=== PATIENT | male | born 1960 | race Caucasian/White ===

== ENCOUNTER → 2018-06-15 | Outpatient (CLI) | payer MEDICARE, OTHER ==
[~2018-06-15] MED LIST: ACYC800 PO; AMLO5 PO; Bactroban22 GM TOP; CIPR500 PO; CITA20 PO; DIAZ5 PO; Desyrel150 MG; FLUC200 PO; GLYB5 PO; IBUPROFEN PO; LISI20 PO; LORA.5 PO; METF500 PO; MULVITMIND PO; NICO14TP TOP; OMEP10ER PO; OXYC5 PO; PIOG30 PO; PROC5 PO; SENN187 PO; TAMS.4ER PO; TRAM50 PO; [UNRECOGNIZED DRUG - CODE] IM/IV/SC
[2018-06-15 12:42] LABS: U Amphetamine Screen Not Detected; U Barbituate Screen Not Detected; U Benzodiazapine Screen Not Detected; U Buprenorphine Screen Not Detected; U Cannabinoids Screen DETECTED; U Cocaine Screen Not Detected; U Methadone Screen Not Detected; U Methamphetamine Screen Not Detected; U Opiates Screen Not Detected; U Oxycodone Screen DETECTED; U Phencyclidine Screen Not Detected; U Propoxyphene Screen Not Detected
== END | disposition home or self-care (01) ==
LOC: LAB SHORT 12:17 → LAB 12:17
PROVIDERS: Internal Medicine Hematology & Oncology
DX: E78.2 Mixed hyperlipidemia (principal); E11.9 Type 2 diabetes mellitus without complications; I10 Essential (primary) hypertension; Z79.899 Other long term (current) drug therapy
CPT/HCPCS: G0480

== ENCOUNTER → 2018-09-06 | Outpatient (CLI) | payer MEDICARE, OTHER ==
[2018-09-06 14:34] LABS: U Amphetamine Screen Not Detected; U Barbituate Screen Not Detected; U Benzodiazapine Screen Not Detected; U Buprenorphine Screen Not Detected; U Cannabinoids Screen DETECTED; U Cocaine Screen Not Detected; U Methadone Screen Not Detected; U Methamphetamine Screen Not Detected; U Opiates Screen Not Detected; U Oxycodone Screen DETECTED; U Phencyclidine Screen Not Detected; U Propoxyphene Screen Not Detected
== END | disposition home or self-care (01) ==
LOC: LAB SHORT 13:14 → LAB 13:14
PROVIDERS: Internal Medicine Hematology & Oncology
DX: F11.20 Opioid dependence, uncomplicated (principal); Z79.899 Other long term (current) drug therapy
CPT/HCPCS: G0480

== ENCOUNTER → 2019-10-26 | Outpatient (CLI) | payer MEDICARE, OTHER | END | disposition home or self-care (01) | LOC: LAB SHORT 08:16 → LAB 08:16 | DX: C44.612 Basal cell carcinoma of skin of right upper limb, including shoulder (principal) | CPT/HCPCS: 88305 ==

== ENCOUNTER → 2019-11-08 | Outpatient (CLI) | payer MEDICARE, OTHER ==
[2019-11-08 11:49] LABS: U Cannabinoids Screen DETECTED
[2019-11-08 11:50] LABS: U Amphetamine Screen Not Detected; U Barbituate Screen Not Detected; U Benzodiazapine Screen Not Detected; U Buprenorphine Screen Not Detected; U Cocaine Screen Not Detected; U Methadone Screen Not Detected; U Methamphetamine Screen Not Detected; U Opiates Screen Not Detected; U Oxycodone Screen DETECTED; U Phencyclidine Screen Not Detected; U Propoxyphene Screen Not Detected
== END | disposition home or self-care (01) ==
LOC: LAB SHORT 09:45 → LAB 09:45
PROVIDERS: Internal Medicine Hematology & Oncology
DX: Z51.81 Encounter for therapeutic drug level monitoring (principal); Z79.899 Other long term (current) drug therapy

== ENCOUNTER → 2020-04-30 | Outpatient (CLI) | payer MEDICARE, OTHER ==
[2020-04-30 17:33] LABS: Albumin/Globulin Ratio 1.2 (0.8-1.8); Bilirubin, Total 0.6 mg/dL (0.1-1.0); Bun/Creatinine Ratio 19.5 (12.0-20.0); Calcium, Blood 8.9 mg/dL (8.5-10.1); Creatinine, Blood 1.49 mg/dL (0.60-1.20); Globulin, Blood 3.4 g/dL (2.2-4.0); Total Protein, Blood 7.4 g/dL (6.4-8.2)
== END | disposition home or self-care (01) ==
LOC: LAB SHORT 13:46 → LAB 13:46
PROVIDERS: Internal Medicine Hematology & Oncology
DX: C83.70 Burkitt lymphoma, unspecified site (principal); E56.9 Vitamin deficiency, unspecified; E53.8 Deficiency of other specified B group vitamins
CPT/HCPCS: 80053; 82607; 82746; 84100

== ENCOUNTER → 2020-08-02 | Outpatient (CLI) | payer MEDICARE, OTHER ==
[2020-08-02 15:18] LABS: U Amphetamine Screen Not Detected; U Barbituate Screen Not Detected; U Benzodiazapine Screen Not Detected; U Buprenorphine Screen Not Detected; U Cannabinoids Screen DETECTED; U Cocaine Screen Not Detected; U Methadone Screen Not Detected; U Methamphetamine Screen Not Detected; U Opiates Screen Not Detected; U Oxycodone Screen DETECTED; U Phencyclidine Screen Not Detected; U Propoxyphene Screen Not Detected
== END | disposition home or self-care (01) ==
LOC: LAB SHORT 13:50 → LAB 13:50
PROVIDERS: Internal Medicine Hematology & Oncology
DX: Z51.81 Encounter for therapeutic drug level monitoring (principal); Z79.899 Other long term (current) drug therapy

== ENCOUNTER → 2021-12-31 | Outpatient (CLI) | payer MEDICARE ==
[2021-12-31 14:24] LABS: U Amphetamine Screen Not Detected; U Barbituate Screen Not Detected; U Benzodiazapine Screen DETECTED; U Buprenorphine Screen Not Detected; U Cannabinoids Screen DETECTED; U Cocaine Screen Not Detected; U Methadone Screen Not Detected; U Methamphetamine Screen Not Detected; U Opiates Screen Not Detected; U Oxycodone Screen DETECTED; U Phencyclidine Screen Not Detected; U Propoxyphene Screen Not Detected
== END | disposition home or self-care (01) ==
LOC: LAB 08:04 → LAB SHORT 08:04
PROVIDERS: Internal Medicine Hematology & Oncology
DX: Z51.81 Encounter for therapeutic drug level monitoring (principal); Z79.899 Other long term (current) drug therapy

== ENCOUNTER → 2022-01-30 | Outpatient (CLI) | payer MEDICARE, OTHER ==
[2022-01-30 12:14] LABS: U Amphetamine Screen Not Detected; U Barbituate Screen Not Detected; U Benzodiazapine Screen DETECTED; U Buprenorphine Screen Not Detected; U Cannabinoids Screen DETECTED; U Cocaine Screen Not Detected; U Methadone Screen Not Detected; U Methamphetamine Screen Not Detected; U Opiates Screen Not Detected; U Oxycodone Screen DETECTED; U Phencyclidine Screen Not Detected; U Propoxyphene Screen Not Detected
== END | disposition home or self-care (01) ==
LOC: LAB SHORT 10:27
PROVIDERS: Internal Medicine Hematology & Oncology
DX: Z51.81 Encounter for therapeutic drug level monitoring (principal); Z79.899 Other long term (current) drug therapy

== ENCOUNTER → 2022-03-02 | Outpatient (CLI) | payer MEDICARE ==
[2022-03-02 12:40] LABS: U Amphetamine Screen Not Detected; U Barbituate Screen Not Detected; U Benzodiazapine Screen Not Detected; U Buprenorphine Screen Not Detected; U Cannabinoids Screen DETECTED; U Cocaine Screen Not Detected; U Methadone Screen Not Detected; U Methamphetamine Screen Not Detected; U Opiates Screen Not Detected; U Oxycodone Screen DETECTED; U Phencyclidine Screen Not Detected; U Propoxyphene Screen Not Detected
[2022-03-09 08:08] LABS: CARBOXY-THC >746 (.)
== END | disposition home or self-care (01) ==
LOC: LAB 10:30 → LAB SHORT 10:30
PROVIDERS: Internal Medicine Hematology & Oncology
DX: Z51.81 Encounter for therapeutic drug level monitoring (principal); Z79.899 Other long term (current) drug therapy
CPT/HCPCS: G0480

== ENCOUNTER → 2022-03-20 | Outpatient (CLI) | payer MEDICARE, OTHER ==
[2022-03-20 11:39] LABS: BASOPHILS ABSOLUTE AUTO 0.04 K/mm3 (0.00-0.23); BASOPHILS PERCENT AUTO 0 % (0-2); EOSINOPHILS ABSOLUTE AUTO 0.02 K/mm3 (0.00-0.68); EOSINOPHILS PERCENT AUTO 0 % (0-6); Hematocrit 52.8 % (37.0-53.0); Hemoglobin 18.4 g/dL (13.5-17.5); IMMATURE GRAN ABSOLUTE AUTO 0.04 K/mm3 (0.00-0.10); IMMATURE GRAN PERCENT AUTO 0 % (0-1); LYMPHOCYTES ABSOLUTE AUTO 1.56 K/mm3 (0.84-5.20); LYMPHOCYTES PERCENT AUTO 12 % (21-46); MONOCYTES PERCENT AUTO 7 % (4-13); Mean Corpuscular HGB 29.4 pg (26.0-34.0); Mean Corpuscular HGB Conc 34.8 g/dL (31.5-36.5); Mean Corpuscular Volume 84 fL (80-100); Mean Platelet Volume 9.2 fL (9.1-12.4); NEUTROPHILS ABSOLUTE AUTO 10.76 K/mm3 (1.96-9.15); NEUTROPHILS PERCENT AUTO 81 % (41-73); Platelet Count 128 K/mm3 (150-400); RDW Coefficient Variation 12.9 % (11.7-14.2); RDW Standard Deviation 39.7 fL (35.1-46.3); Red Blood Cell Count 6.26 M/mm3 (4.30-5.90); White Blood Cell Count 13.32 K/mm3 (4.00-11.30)
[2022-03-20 11:43] LABS: Bun/Creatinine Ratio 18.4 (12.0-20.0); Calcium, Blood 9.7 mg/dL (8.5-10.1); Creatinine, Blood 1.85 mg/dL (0.60-1.20); Potassium, Blood 4.4 mmol/L (3.5-5.5)
== END ==
LOC: LAB 11:33 → LAB SHORT 11:33
PROVIDERS: Physician Assistant
DX: R53.83 Other fatigue (principal)
CPT/HCPCS: 80048; 85025

== ENCOUNTER → 2022-03-25 | Outpatient (CLI) | payer MEDICARE ==
[2022-03-25 12:34] LABS: Creatinine, Urine Random 43.1 mg/dL (27.00-270.00); Protein, Urine Random 14.9 mg/dL (0.0-11.9); Protein/Creat Ratio, Ur Random 0.3
== END | disposition home or self-care (01) ==
LOC: PLD 09:32 → LAB SHORT 09:32
PROVIDERS: Internal Medicine Nephrology
DX: N18.31 Chronic kidney disease, stage 3a (principal)
CPT/HCPCS: 82570; 84156

== ENCOUNTER → 2022-04-01 | Outpatient (CLI) | payer MEDICARE ==
[2022-04-01 12:32] LABS: U Amphetamine Screen Not Detected; U Barbituate Screen Not Detected; U Benzodiazapine Screen Not Detected; U Buprenorphine Screen Not Detected; U Cannabinoids Screen DETECTED; U Cocaine Screen Not Detected; U Methadone Screen Not Detected; U Methamphetamine Screen Not Detected; U Opiates Screen Not Detected; U Oxycodone Screen DETECTED; U Phencyclidine Screen Not Detected; U Propoxyphene Screen Not Detected
[2022-04-07 17:10] LABS: CARBOXY-THC >661 (.)
== END | disposition home or self-care (01) ==
LOC: LAB 09:22 → LAB SHORT 09:22
PROVIDERS: Internal Medicine Hematology & Oncology
DX: Z51.81 Encounter for therapeutic drug level monitoring (principal); Z79.899 Other long term (current) drug therapy
CPT/HCPCS: G0480

== ENCOUNTER → 2022-06-03 | Outpatient (CLI) | payer MEDICARE ==
[2022-06-03 14:32] LABS: U Amphetamine Screen Not Detected; U Barbituate Screen Not Detected; U Benzodiazapine Screen Not Detected; U Buprenorphine Screen Not Detected; U Cannabinoids Screen DETECTED; U Cocaine Screen Not Detected; U Methadone Screen Not Detected; U Methamphetamine Screen Not Detected; U Opiates Screen Not Detected; U Oxycodone Screen DETECTED; U Phencyclidine Screen Not Detected; U Propoxyphene Screen Not Detected
== END | disposition home or self-care (01) ==
LOC: LAB SHORT 09:46
PROVIDERS: Internal Medicine Hematology & Oncology
DX: Z51.81 Encounter for therapeutic drug level monitoring (principal); Z79.899 Other long term (current) drug therapy

== ENCOUNTER → 2022-07-01 | Outpatient (CLI) | payer MEDICARE ==
[2022-07-01 14:17] LABS: U Amphetamine Screen Not Detected; U Barbituate Screen Not Detected; U Benzodiazapine Screen DETECTED; U Buprenorphine Screen Not Detected; U Cannabinoids Screen DETECTED; U Cocaine Screen Not Detected; U Methadone Screen Not Detected; U Methamphetamine Screen Not Detected; U Opiates Screen Not Detected; U Oxycodone Screen DETECTED; U Phencyclidine Screen Not Detected; U Propoxyphene Screen Not Detected
== END | disposition home or self-care (01) ==
LOC: LAB SHORT 10:01 → LAB 10:01
PROVIDERS: Internal Medicine Hematology & Oncology
DX: Z51.81 Encounter for therapeutic drug level monitoring (principal); Z79.899 Other long term (current) drug therapy

== ENCOUNTER → 2022-07-31 | Outpatient (CLI) | payer MEDICARE ==
[2022-07-31 14:34] LABS: U Amphetamine Screen Not Detected; U Barbituate Screen Not Detected; U Benzodiazapine Screen DETECTED; U Buprenorphine Screen Not Detected; U Cannabinoids Screen DETECTED; U Cocaine Screen Not Detected; U Methadone Screen Not Detected; U Methamphetamine Screen Not Detected; U Opiates Screen Not Detected; U Oxycodone Screen DETECTED; U Phencyclidine Screen Not Detected; U Propoxyphene Screen Not Detected
== END | disposition home or self-care (01) ==
LOC: LAB SHORT 12:40
PROVIDERS: Internal Medicine Hematology & Oncology
DX: Z51.81 Encounter for therapeutic drug level monitoring (principal); Z79.899 Other long term (current) drug therapy

== ENCOUNTER → 2022-08-31 | Outpatient (CLI) | payer MEDICARE ==
[2022-08-31 19:04] LABS: U Amphetamine Screen Not Detected; U Barbituate Screen Not Detected; U Benzodiazapine Screen DETECTED; U Buprenorphine Screen Not Detected; U Cannabinoids Screen DETECTED; U Cocaine Screen Not Detected; U Methadone Screen Not Detected; U Methamphetamine Screen Not Detected; U Opiates Screen Not Detected; U Oxycodone Screen DETECTED; U Phencyclidine Screen Not Detected; U Propoxyphene Screen Not Detected
== END | disposition home or self-care (01) ==
LOC: LAB 10:30 → LAB SHORT 10:30
PROVIDERS: Internal Medicine Hematology & Oncology
DX: Z79.899 Other long term (current) drug therapy (principal)

== ENCOUNTER → 2022-10-01 | Outpatient (CLI) | payer MEDICARE ==
[2022-10-01 11:51] LABS: U Benzodiazapine Screen DETECTED; U Cannabinoids Screen DETECTED; U Oxycodone Screen DETECTED
[2022-10-01 11:52] LABS: U Amphetamine Screen Not Detected; U Barbituate Screen Not Detected; U Buprenorphine Screen Not Detected; U Cocaine Screen Not Detected; U Methadone Screen Not Detected; U Methamphetamine Screen Not Detected; U Opiates Screen Not Detected; U Phencyclidine Screen Not Detected; U Propoxyphene Screen Not Detected
== END | disposition home or self-care (01) ==
LOC: LAB 10:11 → LAB SHORT 10:11
PROVIDERS: Internal Medicine Hematology & Oncology
DX: Z51.81 Encounter for therapeutic drug level monitoring (principal); Z79.899 Other long term (current) drug therapy

== ENCOUNTER → 2022-10-30 | Outpatient (CLI) | payer MEDICARE ==
[2022-10-30 15:57] LABS: U Amphetamine Screen Not Detected; U Barbituate Screen Not Detected; U Benzodiazapine Screen Not Detected; U Buprenorphine Screen Not Detected; U Cannabinoids Screen DETECTED; U Cocaine Screen Not Detected; U Methadone Screen Not Detected; U Methamphetamine Screen Not Detected; U Opiates Screen Not Detected; U Oxycodone Screen DETECTED; U Phencyclidine Screen Not Detected; U Propoxyphene Screen Not Detected
== END | disposition home or self-care (01) ==
LOC: LAB 13:24 → LAB SHORT 13:24
PROVIDERS: Internal Medicine Hematology & Oncology
DX: Z51.81 Encounter for therapeutic drug level monitoring (principal); Z79.899 Other long term (current) drug therapy

== ENCOUNTER → 2022-11-30 | Outpatient (CLI) | payer MEDICARE ==
[2022-11-30 16:28] LABS: U Amphetamine Screen Not Detected; U Barbituate Screen Not Detected; U Benzodiazapine Screen Not Detected; U Buprenorphine Screen Not Detected; U Cannabinoids Screen DETECTED; U Cocaine Screen Not Detected; U Methadone Screen Not Detected; U Methamphetamine Screen Not Detected; U Opiates Screen Not Detected; U Oxycodone Screen DETECTED; U Phencyclidine Screen Not Detected; U Propoxyphene Screen Not Detected
[2022-12-06 13:08] LABS: CARBOXY-THC 952 (.)
== END ==
LOC: LAB SHORT 13:00 → LAB 13:00
PROVIDERS: Internal Medicine Hematology & Oncology
DX: Z51.81 Encounter for therapeutic drug level monitoring (principal); Z79.899 Other long term (current) drug therapy
CPT/HCPCS: G0480

== ENCOUNTER → 2022-12-28 | Outpatient (CLI) | payer MEDICARE ==
[2022-12-28 15:51] LABS: U Amphetamine Screen Not Detected; U Barbituate Screen Not Detected; U Benzodiazapine Screen DETECTED; U Buprenorphine Screen Not Detected; U Cannabinoids Screen DETECTED; U Cocaine Screen Not Detected; U Methadone Screen Not Detected; U Methamphetamine Screen Not Detected; U Opiates Screen Not Detected; U Oxycodone Screen DETECTED; U Phencyclidine Screen Not Detected; U Propoxyphene Screen Not Detected
[2022-12-31 17:11] LABS: CARBOXY-THC >833 (.)
== END | disposition home or self-care (01) ==
LOC: LAB 13:23 → LAB SHORT 13:23
PROVIDERS: Internal Medicine Hematology & Oncology
DX: Z51.81 Encounter for therapeutic drug level monitoring (principal); Z79.899 Other long term (current) drug therapy
CPT/HCPCS: G0480

== ENCOUNTER → 2023-03-29 | Outpatient (CLI) | payer MEDICARE ==
[2023-03-29 16:00] LABS: U Cannabinoids Screen DETECTED; U Oxycodone Screen DETECTED
[2023-03-29 16:01] LABS: U Amphetamine Screen Not Detected; U Barbituate Screen Not Detected; U Benzodiazapine Screen Not Detected; U Buprenorphine Screen Not Detected; U Cocaine Screen Not Detected; U Methadone Screen Not Detected; U Methamphetamine Screen Not Detected; U Opiates Screen Not Detected; U Phencyclidine Screen Not Detected; U Propoxyphene Screen Not Detected
== END ==
LOC: LAB SHORT 13:39 → LAB 13:39
PROVIDERS: Internal Medicine Hematology & Oncology
DX: C83.70 Burkitt lymphoma, unspecified site (principal); G89.29 Other chronic pain; Z79.899 Other long term (current) drug therapy

== ENCOUNTER → 2023-04-27 | Outpatient (CLI) | payer MEDICARE ==
[2023-04-27 19:51] LABS: U Amphetamine Screen Not Detected; U Barbituate Screen Not Detected; U Benzodiazapine Screen Not Detected; U Buprenorphine Screen Not Detected; U Cannabinoids Screen DETECTED; U Cocaine Screen Not Detected; U Methadone Screen Not Detected; U Methamphetamine Screen Not Detected; U Opiates Screen Not Detected; U Oxycodone Screen DETECTED; U Phencyclidine Screen Not Detected
== END | disposition home or self-care (01) ==
LOC: LAB 18:16 → LAB SHORT 18:16
PROVIDERS: Internal Medicine Hematology & Oncology
DX: Z51.81 Encounter for therapeutic drug level monitoring (principal); Z79.899 Other long term (current) drug therapy

== ENCOUNTER → 2023-05-25 | Outpatient (CLI) | payer MEDICARE ==
[2023-05-25 14:37] LABS: U Amphetamine Screen Not Detected; U Barbituate Screen Not Detected; U Benzodiazapine Screen Not Detected; U Buprenorphine Screen Not Detected; U Cannabinoids Screen DETECTED; U Cocaine Screen Not Detected; U Methadone Screen Not Detected; U Methamphetamine Screen Not Detected; U Opiates Screen Not Detected; U Oxycodone Screen DETECTED; U Phencyclidine Screen Not Detected
== END | disposition home or self-care (01) ==
LOC: LAB 12:46 → LAB SHORT 12:46
PROVIDERS: Internal Medicine Hematology & Oncology
DX: Z51.81 Encounter for therapeutic drug level monitoring (principal); Z79.899 Other long term (current) drug therapy

== ENCOUNTER → 2023-07-01 | Outpatient (CLI) | payer OTHER ==
[2023-07-01 14:20] LABS: U Amphetamine Screen Not Detected; U Barbituate Screen Not Detected; U Benzodiazapine Screen Not Detected; U Buprenorphine Screen Not Detected; U Cannabinoids Screen DETECTED; U Cocaine Screen Not Detected; U Methadone Screen Not Detected; U Methamphetamine Screen Not Detected; U Opiates Screen Not Detected; U Oxycodone Screen DETECTED; U Phencyclidine Screen Not Detected
== END ==
LOC: LAB 10:01 → LAB SHORT 10:01
PROVIDERS: Internal Medicine Hematology & Oncology
DX: Z51.81 Encounter for therapeutic drug level monitoring (principal); Z79.899 Other long term (current) drug therapy

== ENCOUNTER → 2023-07-29 | Outpatient (CLI) | payer OTHER ==
[2023-07-29 14:46] LABS: U Amphetamine Screen Not Detected; U Barbituate Screen Not Detected; U Benzodiazapine Screen Not Detected; U Cannabinoids Screen DETECTED; U Cocaine Screen Not Detected; U Methadone Screen Not Detected; U Methamphetamine Screen Not Detected; U Oxycodone Screen DETECTED
[2023-07-29 14:47] LABS: U Buprenorphine Screen Not Detected; U Opiates Screen Not Detected; U Phencyclidine Screen Not Detected
== END ==
LOC: LAB 13:59 → LAB SHORT 13:59
PROVIDERS: Internal Medicine Hematology & Oncology
DX: C83.70 Burkitt lymphoma, unspecified site (principal); G89.29 Other chronic pain; Z79.899 Other long term (current) drug therapy

== ENCOUNTER → 2023-09-27 | Outpatient (CLI) | payer OTHER ==
[2023-09-27 14:56] LABS: U Amphetamine Screen Not Detected; U Barbituate Screen Not Detected; U Benzodiazapine Screen Not Detected; U Buprenorphine Screen Not Detected; U Cannabinoids Screen DETECTED; U Cocaine Screen Not Detected; U Methadone Screen Not Detected; U Methamphetamine Screen Not Detected; U Opiates Screen Not Detected; U Oxycodone Screen DETECTED; U Phencyclidine Screen Not Detected
== END | disposition home or self-care (01) ==
LOC: LAB 09:35 → LAB SHORT 09:35
PROVIDERS: Internal Medicine Hematology & Oncology
DX: G89.29 Other chronic pain (principal); Z79.899 Other long term (current) drug therapy

== ENCOUNTER → 2023-11-29 | Outpatient (CLI) | payer OTHER ==
[2023-11-29 13:32] LABS: U Amphetamine Screen Not Detected; U Barbituate Screen Not Detected; U Benzodiazapine Screen Not Detected; U Buprenorphine Screen Not Detected; U Cannabinoids Screen DETECTED; U Cocaine Screen Not Detected; U Methadone Screen Not Detected; U Methamphetamine Screen Not Detected; U Opiates Screen Not Detected; U Oxycodone Screen DETECTED; U Phencyclidine Screen Not Detected
== END | disposition home or self-care (01) ==
LOC: LAB 11:18 → LAB SHORT 11:18
PROVIDERS: Internal Medicine Hematology & Oncology
DX: C83.70 Burkitt lymphoma, unspecified site (principal); E11.43 Type 2 diabetes mellitus with diabetic autonomic (poly)neuropathy; R53.83 Other fatigue; Z79.899 Other long term (current) drug therapy

== ENCOUNTER → 2023-12-30 | Outpatient (CLI) | payer OTHER ==
[2023-12-30 14:30] LABS: U Cannabinoids Screen DETECTED; U Oxycodone Screen DETECTED
[2023-12-30 14:31] LABS: U Amphetamine Screen Not Detected; U Barbituate Screen Not Detected; U Benzodiazapine Screen Not Detected; U Buprenorphine Screen Not Detected; U Cocaine Screen Not Detected; U Methadone Screen Not Detected; U Methamphetamine Screen Not Detected; U Opiates Screen Not Detected; U Phencyclidine Screen Not Detected
== END | disposition home or self-care (01) ==
LOC: LAB SHORT 13:05 → LAB 13:05
PROVIDERS: Internal Medicine Hematology & Oncology
DX: C83.70 Burkitt lymphoma, unspecified site (principal); Z79.899 Other long term (current) drug therapy

== ENCOUNTER → 2024-01-28 | Outpatient (CLI) | payer OTHER ==
[2024-01-28 14:33] LABS: U Amphetamine Screen Not Detected; U Barbituate Screen Not Detected; U Benzodiazapine Screen Not Detected; U Cannabinoids Screen DETECTED; U Cocaine Screen Not Detected; U Methadone Screen Not Detected; U Methamphetamine Screen Not Detected; U Oxycodone Screen DETECTED
[2024-01-28 14:34] LABS: U Buprenorphine Screen Not Detected; U Opiates Screen Not Detected; U Phencyclidine Screen Not Detected
== END | disposition home or self-care (01) ==
LOC: LAB 13:01 → LAB SHORT 13:01
PROVIDERS: Internal Medicine Hematology & Oncology
DX: Z51.81 Encounter for therapeutic drug level monitoring (principal); Z79.899 Other long term (current) drug therapy

== ENCOUNTER 2024-03-15 07:52 | Day surgery (SDC) | payer OTHER ==
[2024-03-15] VITALS (20 sets, daily range): BP systolic 97–152; BP diastolic 62–96
[~2024-03-15] VITALS: Ht 177.8 cm; Wt 89.5 kg
[~2024-03-15 07:52] MED LIST changes: +INSULANI SC; +PANT40 PO; +Prozac40 MG PO
[2024-03-15] MEDS ORDERED: Lactated Ringer's 1,000 ML IV SCH (08:55)
--- NOTE | 2024-03-15 09:22 | NUR ---
Ambulatory in Day Surgery. History, Chart, Medications and Allergies reviewed before start of procedure. Lungs clear T/O to Auscultation. Patient confirms NPO status and agrees with scheduled surgery. Pre-Op teaching done. Pt verbalizes understanding. Patient States Post-Procedure ride home has been arranged.
[2024-03-15] MEDS ORDERED: propofoL 40 ML IV ONE (09:36)
--- NOTE | 2024-03-15 09:41 | NUR ---
03/15/24 0941 Nadia Acharya CONFIRMED AND REVIEWED H&P, MEDCICATIONS, ALLERGIES, MEDICAL HISTORY, RESPIRATORY HISTORY, VITAL SIGNS, 3-LEAD EKG, CONSENTS, AND PHYSICIAN ORDERS. PATIENT CONFIRMS NPO STATUS AND AGREES WITH SCHEDULED PROCEDURE. MONITOR INTACT WITH CONTINUOUS PULSE OXIMETRY, CAPNOGRAPHY, 3-LEAD EKG, INTERMITTENT BP. SUPPLEMENTAL O2 TO BE TITRATED THROUGHOUT PROCEDURE TO MAINTAIN O2 SATURATION ABOVE 90%. PATIENT DETERMINED TO BE ASA APPROPRIATE FOR PROPOFOL SEDATION PRIOR TO START OF PROCEDURE BY DR. THORNE MALLAMPATI CLASS 2 AIRWAY: COMPLETE VISUALIZATION OF THE UVULA.
[2024-03-15] MEDS ORDERED: Midazolam HCl 1MG / ML 2ML Vial ONE (09:44)
--- NOTE | 2024-03-15 10:39 | NUR ---
Discharge instructions reviewed with patient. Patient verbalizes understanding. Copy given to patient to take home. Patient States Post-Procedure ride home has been arranged. Discharged via wheelchair to private car for ride home.
== END 2024-03-15 10:40 | disposition home or self-care (01) ==
LOC: ORSCMMR 07:52 → ORD 09:00 → ORSCMMR 09:00
PROVIDERS: Internal Medicine Gastroenterology
PROC: 0DBL8ZX Excision of Transverse Colon, Via Natural or Artificial Opening Endoscopic, Diagnostic (ICD-10-PCS; principal; 2024-03-15 09:00)
PROC: 0DBK8ZX Excision of Ascending Colon, Via Natural or Artificial Opening Endoscopic, Diagnostic (ICD-10-PCS; principal; 2024-03-15 09:00)
PROC: 0DBM8ZX Excision of Descending Colon, Via Natural or Artificial Opening Endoscopic, Diagnostic (ICD-10-PCS; principal; 2024-03-15 09:00)
DX: Z12.11 Encounter for screening for malignant neoplasm of colon (principal); D12.2 Benign neoplasm of ascending colon; D12.4 Benign neoplasm of descending colon; K63.5 Polyp of colon; K64.8 Other hemorrhoids; Z86.0101 Personal history of adenomatous and serrated colon polyps; C83.7 Burkitt lymphoma; E11.9 Type 2 diabetes mellitus without complications; K21.9 Gastro-esophageal reflux disease without esophagitis; I10 Essential (primary) hypertension; F32.A Depression, unspecified; Z79.84 Long term (current) use of oral hypoglycemic drugs; Z79.899 Other long term (current) drug therapy; Z87.891 Personal history of nicotine dependence
CPT/HCPCS: 82947; 88305; J2250; J2704; J7120

== ENCOUNTER 2024-05-29 08:02 | Day surgery (SDC) | payer OTHER ==
[2024-05-29] VITALS (7 sets, daily range): BP systolic 116–143; BP diastolic 63–90
[~2024-05-29] VITALS: Ht 177.8 cm; Wt 91.2 kg
[~2024-05-29 08:02] MED LIST changes: +VITAMIN D31000 UNI1 PO
[2024-05-29] MEDS ORDERED: NS 1,000 ML IV ONE ×2 (09:40→09:42)
[2024-05-29] MEDS ORDERED: Heparin Sodium 1000 Units/ML 10ML MDV ONE ×2 (09:40→11:42)
[2024-05-29] MEDS ORDERED: Verapamil HCL 2.5 MG/ML 2ML Injection ONE (09:40)
[2024-05-29] MEDS ORDERED: NS 500 ML IV ONE (09:40)
[2024-05-29] MEDS ORDERED: Nitroglycerin 2 MG/20 ML BTL ONE (09:41)
[2024-05-29] MEDS ORDERED: Midazolam HCl 1MG / ML 2ML Vial ONE ×2 (09:42→11:52)
[2024-05-29] MEDS ORDERED: FentaNYL Citrate 50 MCG/ML 2 ML Injection ONE ×2 (09:42→11:52)
[2024-05-29 10:56] LABS: Bun/Creatinine Ratio 11.7 (12.0-20.0); Calcium, Blood 9.4 mg/dL (8.5-10.1); Creatinine, Blood 1.71 mg/dL (0.60-1.20); Potassium, Blood 4.8 mmol/L (3.5-5.5)
[2024-05-29] MEDS ORDERED: Protamine Sulfate 50 MG Amp ONE (12:07)
[2024-05-29] MEDS ORDERED: HydrALAZINE HCl 20 MG / ML 1ML Vial ONE (12:14)
--- NOTE | 2024-05-29 12:45 | NUR ---
ASSUMED CARE OF PT. PT AWAKE, ORIENTED AND COOPERATIVE; DENIES PAIN POST PROCEDURE. MONITOR SB 50'S, B/P 119/63, SPO2 98 % RA. R BRACHIAL SITE NO SWELLING/HEMATOMA, TEGADERM DRSG INTACT, ARM IMMOBILIZER IN PLACE; RUE POSITIVE PLEUTH.
--- NOTE | 2024-05-29 14:10 | NUR ---
PT DRESSED SELF WITHOUT ISSUE, BRACHIAL SITE UNCHANGED; IV REMOVED-CANNULA INTACT.
--- NOTE | 2024-05-29 14:27 | NUR ---
PT RECEIVED DISCHARGE INSTRUCTIONS, MED LIST AND AFTER CARE INSTRUCTIONS; VERBZLIZED GOOD UNDERSTANDING. PT LEFT FACILITY VIA W/C, CONDITION STABLE.
== END 2024-05-29 14:27 | disposition home or self-care (01) ==
LOC: MHTC 08:02
PROVIDERS: Student in an Organized Health Care Education/Training Program
DX: E11.51 Type 2 diabetes mellitus with diabetic peripheral angiopathy without gangrene (principal); I70.221 Atherosclerosis of native arteries of extremities with rest pain, right leg; E11.22 Type 2 diabetes mellitus with diabetic chronic kidney disease; I12.9 Hypertensive chronic kidney disease with stage 1 through stage 4 chronic kidney disease, or unspecified chronic kidney disease; N18.31 Chronic kidney disease, stage 3a; Z87.891 Personal history of nicotine dependence; Z88.0 Allergy status to penicillin; Z88.5 Allergy status to narcotic agent; Z79.899 Other long term (current) drug therapy
CPT/HCPCS: 76937; 80048; 99152; 99153; C1725; C1753; C1769; C1887; J0360; J1644; J2250; J2720; J3010; J7030; J7050; Q9967

== ENCOUNTER → 2024-07-06 | Outpatient (CLI) | payer OTHER ==
[2024-07-06 14:42] LABS: U Amphetamine Screen Not Detected; U Barbituate Screen Not Detected; U Benzodiazapine Screen Not Detected; U Buprenorphine Screen Not Detected; U Cannabinoids Screen DETECTED; U Cocaine Screen Not Detected; U Methadone Screen Not Detected; U Methamphetamine Screen Not Detected; U Opiates Screen Not Detected; U Oxycodone Screen DETECTED; U Phencyclidine Screen Not Detected
== END | disposition home or self-care (01) ==
LOC: LAB 09:30 → LAB SHORT 09:30
PROVIDERS: Internal Medicine Hematology & Oncology
DX: Z79.899 Other long term (current) drug therapy (principal)

== ENCOUNTER 2024-07-18 10:39 | Emergency (ER) | payer OTHER ==
[~2024-07-18] VITALS: Ht 180.3 cm; Wt 89.8 kg
[2024-07-18 10:57] VITALS: BP 136/76
== END 2024-07-18 11:56 | disposition home or self-care (01) ==
LOC: ER 10:39
DX: S93.401A Sprain of unspecified ligament of right ankle, initial encounter (principal); E11.40 Type 2 diabetes mellitus with diabetic neuropathy, unspecified; E11.51 Type 2 diabetes mellitus with diabetic peripheral angiopathy without gangrene; F17.210 Nicotine dependence, cigarettes, uncomplicated; Z88.0 Allergy status to penicillin; Z88.5 Allergy status to narcotic agent; Z79.84 Long term (current) use of oral hypoglycemic drugs; Z79.4 Long term (current) use of insulin; Z79.899 Other long term (current) drug therapy; Z59.89 Other problems related to housing and economic circumstances; W01.0XXA Fall on same level from slipping, tripping and stumbling without subsequent striking against object, initial encounter
CPT/HCPCS: 29515; 73610; 99283-25

== ENCOUNTER 2024-07-18 16:42 | Emergency (ER) | payer OTHER ==
[~2024-07-18] VITALS: Ht 177.8 cm; Wt 89.8 kg
[2024-07-18 16:52] VITALS: BP 161/82
== END 2024-07-18 17:20 | disposition home or self-care (01) ==
LOC: ER 16:42
DX: S82.64XA Nondisplaced fracture of lateral malleolus of right fibula, initial encounter for closed fracture (principal); E11.40 Type 2 diabetes mellitus with diabetic neuropathy, unspecified; F17.210 Nicotine dependence, cigarettes, uncomplicated; Z88.0 Allergy status to penicillin; Z88.5 Allergy status to narcotic agent; Z79.899 Other long term (current) drug therapy; Z79.891 Long term (current) use of opiate analgesic; Z79.4 Long term (current) use of insulin; X50.0XXA Overexertion from strenuous movement or load, initial encounter
CPT/HCPCS: 29515; 99281-25

== ENCOUNTER 2025-02-06 07:02 | Day surgery (SDC) | payer OTHER ==
[~2025-02-06] VITALS: Ht 177.8 cm; Wt 86.2 kg
[~2025-02-06 07:02] MED LIST changes: +ASPI81CH PO; +ATOR20 PO; +MAGNESIUM OXID500 MG PO
[2025-02-06 07:30] VITALS: BP 156/103
[2025-02-06 07:31] VITALS: BP 164/93
[2025-02-06] MEDS ORDERED: NS 500 ML IV ONE (07:52)
[2025-02-06] MEDS ORDERED: Nitroglycerin 2 MG/20 ML BTL ONE (07:52)
[2025-02-06] MEDS ORDERED: NS 1,000 ML IV ONE ×2 (07:52→07:54)
[2025-02-06] MEDS ORDERED: Heparin Sodium 1000 Units/ML 10ML MDV ONE ×2 (07:52→07:54)
[2025-02-06] MEDS ORDERED: Verapamil HCL 2.5 MG/ML 2ML Injection ONE (07:53)
[2025-02-06] MEDS ORDERED: NS 250 ML IV ONE (07:59)
[2025-02-06] MEDS ORDERED: FentaNYL Citrate 50 MCG/ML 2 ML Injection ONE ×2 (08:42→09:15)
[2025-02-06] MEDS ORDERED: Midazolam HCl 1MG / ML 2ML Vial ONE (08:42)
[2025-02-06 11:00] VITALS: BP 138/74
[2025-02-06 11:15] VITALS: BP 99/59
[2025-02-06 11:30] VITALS: BP 119/65
--- NOTE | 2025-02-06 12:01 | NUR ---
REPORT RECEIVED EARLIER, RIGHT TIBIAL ACCESS NOTED, GOOD PULSES PROX/DISTAL, MONITORING SITE, CHG DRESSING IN PLACE. SITE INTACT, NO PAIN OR CONCERNS, VSS. PATIENT ATE, DRANK. SITE UNCHANGED. DISCUSSED D/C INSTRUCTIONS, SITE INSTRUCTIONS AND MONITORING, WHEN TO CALL/RETURN, WHAT TO DO IF BLEEDING OCCURS. NO QUESTIONS OR CONCERNS, COPY OF MED LIST ALSO GIVEN, IV REMOVED, PATIENT DRESSED. TAKEN BY WHEELCHAIR AT 1151, MET FAMILY AT PATIENT ENTRANCE, TAKEN BY THIS RN.
== END 2025-02-06 11:51 | disposition home or self-care (01) ==
LOC: MHTC 07:02
DX: E11.51 Type 2 diabetes mellitus with diabetic peripheral angiopathy without gangrene (principal); I12.9 Hypertensive chronic kidney disease with stage 1 through stage 4 chronic kidney disease, or unspecified chronic kidney disease; E11.22 Type 2 diabetes mellitus with diabetic chronic kidney disease; N18.9 Chronic kidney disease, unspecified; C83.70 Burkitt lymphoma, unspecified site; E78.5 Hyperlipidemia, unspecified; Z87.891 Personal history of nicotine dependence; Z79.4 Long term (current) use of insulin; Z79.82 Long term (current) use of aspirin; Z79.899 Other long term (current) drug therapy; Z88.0 Allergy status to penicillin; Z88.5 Allergy status to narcotic agent
CPT/HCPCS: 76937; 99152; 99153; C1725; C1753; C1769; C1887; C1894; C2623; J1644; J2250; J3010; J7030; J7050; Q9967

== ENCOUNTER → 2025-02-08 | Outpatient (CLI) | payer OTHER ==
[2025-02-08 16:50] LABS: U Amphetamine Screen Not Detected; U Barbituate Screen Not Detected; U Benzodiazapine Screen Not Detected; U Buprenorphine Screen Not Detected; U Cannabinoids Screen DETECTED; U Cocaine Screen Not Detected; U Methadone Screen Not Detected; U Methamphetamine Screen Not Detected; U Opiates Screen Not Detected; U Oxycodone Screen DETECTED; U Phencyclidine Screen Not Detected
== END ==
LOC: LAB 14:26 → LAB SHORT 14:26
PROVIDERS: Internal Medicine Hematology & Oncology
DX: C83.70 Burkitt lymphoma, unspecified site (principal); Z79.899 Other long term (current) drug therapy

== ENCOUNTER → 2025-03-08 | Outpatient (CLI) | payer OTHER ==
[2025-03-08 15:49] LABS: U Cannabinoids Screen DETECTED
[2025-03-08 15:50] LABS: U Amphetamine Screen Not Detected; U Barbituate Screen Not Detected; U Benzodiazapine Screen Not Detected; U Buprenorphine Screen Not Detected; U Cocaine Screen Not Detected; U Methadone Screen Not Detected; U Methamphetamine Screen Not Detected; U Opiates Screen Not Detected; U Oxycodone Screen DETECTED; U Phencyclidine Screen Not Detected
== END ==
LOC: LAB 13:35 → LAB SHORT 13:35
PROVIDERS: Internal Medicine Hematology & Oncology
DX: C83.70 Burkitt lymphoma, unspecified site (principal); G60.9 Hereditary and idiopathic neuropathy, unspecified; G89.29 Other chronic pain; Z79.899 Other long term (current) drug therapy

== ENCOUNTER → 2025-04-10 | Outpatient (CLI) | payer OTHER ==
[2025-04-10 15:58] LABS: U Amphetamine Screen Not Detected; U Barbiturate Screen Not Detected; U Benzodiazapine Screen DETECTED; U Cannabinoids Screen DETECTED; U Methamphetamine Screen Not Detected
[2025-04-10 15:59] LABS: U Buprenorphine Screen Not Detected; U Cocaine Screen Not Detected; U Methadone Screen Not Detected; U Opiates Screen Not Detected; U Oxycodone Screen DETECTED; U Phencyclidine Screen Not Detected
== END ==
LOC: LAB SHORT 10:16 → LAB 10:16
PROVIDERS: Internal Medicine Hematology & Oncology
DX: Z79.899 Other long term (current) drug therapy (principal)